=== PATIENT | male | born 1980 | race Caucasian/White ===

== ENCOUNTER 2021-03-06 14:21 | Emergency (ER) | payer OTHER ==
[~2021-03-06] VITALS: Ht 185.4 cm; Wt 117.9 kg
[2021-03-06] MEDS ORDERED: AVAPRO150 MG PO (15:04)
[2021-03-06] MEDS ORDERED: HYDROXYZINE PAM50 MG PO (15:11)
[2021-03-06] MEDS ORDERED: MIRTAZAPINE7.5 MG PO (15:12)
== END 2021-03-06 16:20 | disposition home or self-care (01) ==
LOC: ED 14:21
DX: N50.1 Vascular disorders of male genital organs (principal); I10 Essential (primary) hypertension; Z88.0 Allergy status to penicillin; Z79.899 Other long term (current) drug therapy
CPT/HCPCS: 12001; 99283-25